=== PATIENT | male | born 1975 | race Caucasian/White ===

== ENCOUNTER 2017-02-24 08:42 | Emergency (ER) | payer OTHER ==
[~2017-02-24] VITALS: Ht 185.4 cm; Wt 114.3 kg
[2017-02-24 08:50] VITALS: BP 131/85
--- NOTE | 2017-02-24 09:10 | PHYS DOC ---
Past Medical History Past Medical History: No Pertinent History Past Surgical History: No Surgical History Adult General Chief Complaint Chief Complaint: SHOULDER INJURY HPI HPI Patient is a 41 year old male presents to the emergency department with a history of left upper arm pain, throbbing. Patient states he developed the pain over the weekend, took an ibuprofen with minimal relief. He states the pain comes and goes, cannot associate the pain with any activity. He states the pain goes away on its own. He states he did break out in a sweat. Denies chest pain, and SOA. Patient states his parents both have cardiac problems with father having heart attack at age 57. Patient states he has not taken anything for pain since yesterday. He continues to state he had slight pain in the waiting room but currently is pain free. Review of Systems Review of Systems Constitutional: Denies fever or chills [] Eyes: Denies change in visual acuity, redness, or eye pain [] HENT: Denies nasal congestion or sore throat [] Respiratory: Denies cough or shortness of breath [] Cardiovascular: No additional information not addressed in HPI [] GI: Denies abdominal pain, nausea, vomiting, bloody stools or diarrhea [] : Denies dysuria or hematuria [] Musculoskeletal: Denies back pain. C/o left upper pain Integument: Denies rash or skin lesions [] Neurologic: Denies headache, focal weakness or sensory changes [] Current Medications Current Medications Current Medications Medications (Trade) Dose Ordered Sig/[facility] Start Time Stop Time Status Last Admin Dose Admin Aspirin (Serenity Aspirin) 325 mg STK-MED ONCE 02/24/17 09:57 02/24/17 09:58 [place] Aspirin (Children'S Aspirin) 324 mg 1X ONCE 02/24/17 09:15 02/24/17 10:20 DC 02/24/17 10:01 324 MG Physical Exam Physical Exam Constitutional: Well developed, well nourished, no acute distress, non-toxic appearance. [] HENT: Normocephalic, atraumatic, bilateral external ears normal, oropharynx moist, no oral exudates, nose normal. [] Eyes: PERRLA, EOMI, conjunctiva normal, no discharge. [] Neck: Normal range of motion, no tenderness, supple, no stridor. [] Cardiovascular:Heart rate regular rhythm, no murmur [] Lungs & Thorax: Bilateral breath sounds clear to auscultation [] Abdomen: Bowel sounds normal, soft, no tenderness, no masses, no pulsatile masses. [] Skin: Warm, dry, no erythema, no rash. [] Back: No tenderness Extremities: No tenderness, no cyanosis, no clubbing, ROM intact, no edema. [] Neurologic: Alert and oriented X 3, normal motor function, normal sensory function, no focal deficits noted. [] Psychologic: Affect normal, judgement normal, mood normal. [] Current Patient Data Vital Signs Vital Signs Date Time Temp Pulse Resp B/P Pulse Ox O2 Delivery O2 Flow Rate FiO2 02/24/17 08:50 98.3 72 20 131/85 99 Room Air 98.3 Lab Values Laboratory Tests Test 02/24/17 09:45 White Blood Count 5.6x10^3/uL (4.0-11.0) Red Blood Count 5.16x10^6/uL (4.30-5.70) Hemoglobin 14.5g/dL (13.0-17.5) Hematocrit 42.9% (39.0-53.0) Mean Corpuscular Volume 83fL (79-100) Mean Corpuscular Hemoglobin 28pg (25-35) Mean Corpuscular Hemoglobin Concent 34g/dL (31-37) Red Cell Distribution Width 14.1% (11.5-14.5) Platelet Count 254x10^3/uL (140-400) Neutrophils (%) (Auto) 58% (31-73) Lymphocytes (%) (Auto) 29% (24-48) Monocytes (%) (Auto) 10% (0-9) H Eosinophils (%) (Auto) 1% (0-3) Basophils (%) (Auto) 2% (0-3) Neutrophils # (Auto) 3.3x10^3uL (1.8-7.7) Lymphocytes # (Auto) 1.6x10^3/uL (1.0-4.8) Monocytes # (Auto) 0.6x10^3/uL (0.0-1.1) Eosinophils # (Auto) 0.1x10^3/uL (0.0-0.7) Basophils # (Auto) 0.1x10^3/uL (0.0-0.2) Sodium Level 141mmol/L (136-145) Potassium Level 4.3mmol/L (3.5-5.1) Chloride Level 106mmol/L (98-107) Carbon Dioxide Level 26mmol/L (21-32) Anion Gap 9 (6-14) Blood Urea Nitrogen 21mg/dL (8-26) Creatinine 1.0mg/dL (0.7-1.3) Estimated GFR (Cockcroft-Gault) 81.6 BUN/Creatinine Ratio 21 (6-20) H Glucose Level 139mg/dL (70-99) H Calcium Level 9.2mg/dL (8.5-10.1) Total Bilirubin 0.3mg/dL (0.2-1.0) Aspartate Amino Transferase (AST) 24U/L (15-37) Alanine Aminotransferase (ALT) 39U/L (16-63) Alkaline Phosphatase 49U/L (46-116) Troponin I Quantitative < 0.017ng/mL (0.000-0.055) Total Protein 6.8g/dL (6.4-8.2) Albumin 3.8g/dL (3.4-5.0) Albumin/Globulin Ratio 1.3 (1.0-1.7) Laboratory Tests 02/24/17 09:45 Laboratory Tests 02/24/17 09:45 EKG EKG EKG completed at 0922 with HR 66 no STEMI noted per Dr Aggarwal.[] Radiology/Procedures Radiology/Procedures [] Course & Med Decision Making Course & Med Decision Making Pertinent Labs and Imaging studies reviewed. (See chart for details) EKG normal, CBC, CMP and troponin normal. Patient was provided with lab results. Patient was provided with an ASA here in the emergency department. Patient continues to deny chest pain or SOA. Patient will be discharged home. Recommended Ibuprofen for pain and discomfort. Patient will be discharged home in stable condition with signs and symptoms to return to emergency department. Patient agrees with discharge instructions, treatment regimen and followup recommendations. [] Dragon Disclaimer Dragon Disclaimer This electronic medical record was generated, in whole or in part, using a voice recognition dictation system. Departure Departure Impression: Primary Impression: Left upper arm pain Disposition: HOME, SELF-CARE Condition: STABLE Patient Instructions: Shoulder Pain, [id number] Additional Instructions: Activity as tolerated Medication as prescribed Tylenol or Ibuprofen for pain and discomfort Ice packs as needed Followup with your primary care provider in 3-5 days Return to emergency department as needed for signs and symptoms that become worse. PENELOPE CHAVEZ [employer] MANAGER Feb 24, 2017 09:10
[2017-02-24] MEDS ORDERED: ASPIRIN CHEWABLE 81 MG TABLET. PO ONE (09:15)
--- NOTE | 2017-02-24 09:32 | EKG ---
[facility] [address] [place] [address] Test Date: 2017-02-24 Test Time: 09:22:49 Pat Name: ROSALBA BARILLAS Department: Room: Gender: M [employer]: : [id number] Requested By: PENELOPE CHAVEZ Order Number: [id number] Reading MD: Av Patel Measurements Intervals [place] Rate: 66 P: 34 OK: 246 QRS: 14 QRSD: 74 T: 7 QT: 406 QTc: 427 Interpretive Statements SINUS RHYTHM PROLONGED OK INTERVAL Electronically Signed On 02-25-2017 10:09:34 CDT by Av Patel
[2017-02-24] MEDS ORDERED: ASPIRIN 325 MG TABLET ONE (09:57)
[2017-02-24 09:59] LABS: BASO # 0.1 x10^3/uL (0.0-0.2); BASO % 2 % (0-3); EOS % 1 % (0-3); HEMATOCRIT 42.9 % (39.0-53.0); HEMOGLOBIN 14.5 g/dL (13.0-17.5); LYMPH # 1.6 x10^3/uL (1.0-4.8); LYMPH % 29 % (24-48); MEAN CORPUSCULAR HEMOGLOBIN 28 pg (25-35); MEAN CORPUSCULAR HGB CONC 34 g/dL (31-37); MEAN CORPUSCULAR VOLUME 83 fL (79-100); MONO % 10 % (0-9); NEUT % 58 % (31-73); PLATELET COUNT 254 x10^3/uL (140-400); RED BLOOD COUNT 5.16 x10^6/uL (4.30-5.70); RED CELL DISTRIBUTION WIDTH 14.1 % (11.5-14.5); WHITE BLOOD COUNT 5.6 x10^3/uL (4.0-11.0)
[2017-02-24 10:19] LABS: CALCIUM 9.2 mg/dL (8.5-10.1); GFR 81.6; POTASSIUM 4.3 mmol/L (3.5-5.1)
[2017-02-24 10:25] LABS: ALBUMIN 3.8 g/dL (3.4-5.0); ALBUMIN/GLOBULIN RATIO 1.3 (1.0-1.7); TOTAL BILIRUBIN 0.3 mg/dL (0.2-1.0); TOTAL PROTEIN 6.8 g/dL (6.4-8.2)
== END 2017-02-24 10:55 | disposition home or self-care (01) ==
LOC: ER 08:42
DX: M79.622 Pain in left upper arm (principal)
CPT/HCPCS: 36415; 80053; 84484; 85027; 93005; 99285-25